=== PATIENT | male | born 1975 | race Caucasian/White ===

== ENCOUNTER 2020-01-10 02:43 | Emergency (ER) | payer SELFPAY ==
[2020-01-10 03:17] VITALS: BP 168/71
[2020-01-10] MEDS ORDERED: KETOROLAC 60 MG/2 ML INJ IM ONE (03:23)
[2020-01-10] MEDS ORDERED: KETOROLAC 60 MG/2 ML INJ ONE (03:27)
[2020-01-10 03:59] LABS: Alanine Aminotransferase 35 units/L (7-56); Albumin 4.8 g/dL (3.9-5); BUN/Creatinine Ratio 18; Blood Urea Nitrogen 21 mg/dL (9-20); Calcium 9.5 mg/dL (8.4-10.2); Hemolysis Index 5
[2020-01-10 04:08] LABS: Basophils # (Auto) 0.1 K/mm3 (0.0-0.1); Basophils % (Auto) 0.6 % (0.0-1.8); Eosinophils % (Auto) 0.5 % (0.0-4.3); Hemoglobin 13.7 gm/dl (11.8-15.2); Lymphocytes # (Auto) 1.9 K/mm3 (1.2-5.4); Mean Corpuscular HGB Conc 34 % (32-34); Mean Corpuscular Volume 91 fl (84-94); Monocytes # (Auto) 0.5 K/mm3 (0.0-0.8); Monocytes % (Auto) 5.6 % (0.0-7.3); Platelet Count 233 K/mm3 (140-440); Red Blood Count 4.38 M/mm3 (3.65-5.03); Red Cell Distribution Width 13.1 % (13.2-15.2)
--- NOTE | 2020-01-10 04:11 | Cat Scan Report ---
CT ABDOMEN AND PELVIS WITHOUT CONTRAST INDICATION: Right-sided flank pain TECHNICAL: Multiple axial CT images of the abdomen and pelvis were acquired without intravenous contr ast. Sagittal and coronal reformats were obtained. All CTs at this facility utilize dose reduction techniques including automated exposure control, iterative reconstruction and weight based dosing whe n appropriate to reduce patient radiation dose to as low as reasonable achievable. COMPARISON: None FINDINGS: Limited imaging of the bilateral lung bases demonstrates no acute abnormality. Abdomen: The liver, gallbladder, spleen, pancreas, bilateral adrenal glands and left kidney show no e vidence of acute abnormality. There is mild to moderate right-sided hydronephrosis, hydroureter and p erinephric stranding. There is no evidence of bowel obstruction. The abdominal aorta is normal in caliber. Pelvis: There is an obstructing 3 mm stone at the right ureterovesicular junction with mild to modera te right-sided hydroureter. Few scattered sigmoid diverticula are noted. No free pelvic fluid is iden tified. Bones and Soft Tissues: Evaluation of bony structures demonstrates no evidence of acute bony abnorma lity. Evaluation of soft tissue structures demonstrates no evidence of acute soft tissue abnormality. IMPRESSION: 1. Obstructing 3 mm stone within the distal right ureter causing mild to moderate right-sided hydrone phrosis and perinephric stranding. 2. Sigmoid diverticulosis. Signer Name: Janis Ledezma MD Signed: 01/10/2020 4:07 AM Workstation Name: [id number]
[2020-01-10 04:20] LABS: Bilirubin,Urine NEG (Negative); Blood,Urine LG (Negative); Color,Urine Yellow (Yellow); Mucus,Urine FEW /HPF; Protein,Urine <15 mg/dL mg/dL (Negative); Urobilinogen,Urine < 2.0 mg/dL (<2.0)
[2020-01-10] MEDS ORDERED: ONDANSETRON 4 MG/2 ML INJ IV ONE (07:59)
[2020-01-10] MEDS ORDERED: SODIUM CHLORIDE 0.9% 1000 ML 1,000 ML IV ONE (07:59)
[2020-01-10] MEDS ORDERED: HYDROmorphone 1 MG/1 ML INJ IV ONE (07:59)
--- NOTE | 2020-01-10 08:30 | Emergency Department Report ---
ED General Adult HPI - General Chief complaint: Abdominal Pain Stated complaint: BACK PAIN Time Seen by Provider: 01/10/20 07:39 Source: patient Mode of arrival: Ambulatory Limitations: No Limitations - History of Present Illness Initial comments: Patient is a 44-year-old male presents emergency room with complaints of right- sided flank pain that began just prior to arrival. Patient states that the pain radiates to the right side of the abdomen. He states he has associated nausea and vomiting. He states that he has also noticed hematuria. He denies ever having these symptoms in the past. He denies any fever, dysuria, hematemesis. He denies any past medical history. He states his only allergy is seafood. Severity scale (0 -10): 10 - Related Data Previous Rx's Medication Instructions Recorded Last Taken Type Ondansetron [Zofran Odt] 4 mg PO Q8HR PRN #7 tab.rapdis 01/10/20 Unknown Rx Tamsulosin [Flomax] 0.4 mg PO QDAY #7 cap 01/10/20 Unknown Rx traMADoL [Ultram 50 MG tab] 50 mg PO Q8HR PRN #10 tablet 01/10/20 Unknown Rx Allergies Allergy/AdvReac Type Severity Reaction Status Date / Time seafood Allergy Hives Uncoded 08/14/13 00:17 ED Review of Systems ROS: Stated complaint: BACK PAIN Other details as noted in HPI Comment: All other systems reviewed and negative ED Past Medical Hx - Past Medical History Previous Medical History?: No - Surgical History Past Surgical History?: No - Social History Smoking Status: Never Smoker Substance Use Type: Alcohol - Medications Home Medications: Home Medications Medication Instructions Recorded Confirmed Last Taken Type Ondansetron [Zofran Odt] 4 mg PO Q8HR PRN #7 tab.rapdis 01/10/20 Unknown Rx Tamsulosin [Flomax] 0.4 mg PO QDAY #7 cap 01/10/20 Unknown Rx traMADoL [Ultram 50 MG tab] 50 mg PO Q8HR PRN #10 tablet 01/10/20 Unknown Rx ED Physical Exam - General Limitations: No Limitations General appearance: alert, in no apparent distress - Head Head exam: Present: atraumatic, normocephalic - Eye Eye exam: Present: normal appearance - ENT ENT exam: Present: mucous membranes moist - Respiratory Respiratory exam: Present: normal lung sounds bilaterally. Absent: respiratory distress, wheezes, rales, rhonchi, stridor, chest wall tenderness, accessory muscle use, decreased breath sounds, prolonged expiratory - Cardiovascular Cardiovascular Exam: Present: regular rate, normal rhythm, normal heart sounds. Absent: systolic murmur, diastolic murmur, rubs, gallop - GI/Abdominal GI/Abdominal exam: Present: soft, normal bowel sounds. Absent: distended, tenderness, guarding, rebound, rigid - Back Exam Back exam: Present: CVA tenderness (R). Absent: CVA tenderness (L) - Neurological Exam Neurological exam: Present: alert, oriented X3 - Psychiatric Psychiatric exam: Present: normal affect, normal mood - Skin Skin exam: Present: warm, dry, intact ED Course Vital Signs 01/10/20 01/10/20 03:16 08:17 Temperature 97.4 F L Pulse Rate 66 Respiratory 18 18 Rate Blood Pressure 168/71 [Right] O2 Sat by Pulse 99 Oximetry ED Medical Decision Making - Lab Data Result diagrams: 01/10/20 03:20 01/10/20 03:20 Lab Results 01/10/20 01/10/20 01/10/20 Range/Units 03:20 03:20 Unknown WBC 9.5 (4.5-11.0) K/mm3 RBC 4.38 (3.65-5.03) M/mm3 Hgb 13.7 (11.8-15.2) gm/dl Hct 40.0 (35.5-45.6) % MCV 91 (84-94) fl MCH 31 (28-32) pg MCHC 34 (32-34) % RDW 13.1 L (13.2-15.2) % Plt Count 233 (140-440) K/mm3 Lymph % (Auto) 20.0 (13.4-35.0) % Elbert % (Auto) 5.6 (0.0-7.3) % Eos % (Auto) 0.5 (0.0-4.3) % Baso % (Auto) 0.6 (0.0-1.8) % Lymph # 1.9 (1.2-5.4) K/mm3 Elbert # 0.5 (0.0-0.8) K/mm3 Eos # 0.0 (0.0-0.4) K/mm3 Baso # 0.1 (0.0-0.1) K/mm3 Seg Neutrophils % 73.3 H (40.0-70.0) % Seg Neutrophils # 7.0 (1.8-7.7) K/mm3 Sodium 138 (137-145) mmol/L Potassium 3.5 L (3.6-5.0) mmol/L Chloride 98.4 (98-107) mmol/L Carbon Dioxide 21 L (22-30) mmol/L Anion Gap 22 mmol/L BUN 21 H (9-20) mg/dL Creatinine 1.2 (0.8-1.3) mg/dL Estimated GFR > 60 ml/min BUN/Creatinine Ratio 18 % Glucose 126 H (75-100) mg/dL Calcium 9.5 (8.4-10.2) mg/dL Total Bilirubin 0.50 (0.1-1.2) mg/dL AST 26 (5-40) units/L ALT 35 (7-56) units/L Alkaline Phosphatase 70 (35-129) units/L Total Protein 7.9 (6.3-8.2) g/dL Albumin 4.8 (3.9-5) g/dL Albumin/Globulin Ratio 1.5 % Urine Color Yellow (Yellow) Urine Turbidity Cloudy (Clear) Urine pH 5.0 (5.0-7.0) Ur Specific [place] 1.019 (1.003-1.030) Urine Protein <15 mg/dl (Negative) mg/dL Urine Glucose (UA) Neg (Negative) mg/dL Urine Ketones Tr (Negative) mg/dL Urine Blood Lg (Negative) Urine Nitrite Neg (Negative) Urine Bilirubin Neg (Negative) Urine Urobilinogen < 2.0 (<2.0) mg/dL Ur Leukocyte Esterase Neg (Negative) Urine WBC (Auto) 1.0 (0.0-6.0) /HPF Urine RBC (Auto) 84.0 (0.0-6.0) /HPF U Epithel Cells (Auto) < 1.0 (0-13.0) /HPF Urine Mucus Few /HPF - Radiology Data Radiology results: report reviewed CT ABDOMEN AND PELVIS WITHOUT CONTRAST INDICATION: Right-sided flank pain TECHNICAL: Multiple axial CT images of the abdomen and pelvis were acquired without intravenous contrast. Sagittal and coronal reformats were obtained. All CTs at this facility utilize dose reduction techniques including automated exposure control, iterative reconstruction and weight based dosing when appropriate to reduce patient radiation dose to as low as reasonable achievable. COMPARISON: None FINDINGS: Limited imaging of the bilateral lung bases demonstrates no acute abnormality. Abdomen: The liver, gallbladder, spleen, pancreas, bilateral adrenal glands and left kidney show no evidence of acute abnormality. There is mild to moderate right-sided hydronephrosis, hydroureter and perinephric stranding. There is no evidence of bowel obstruction. The abdominal aorta is normal in caliber. Pelvis: There is an obstructing 3 mm stone at the right ureterovesicular junction with mild to moderate right-sided hydroureter. Few scattered sigmoid diverticula are noted. No free pelvic fluid is identified. Bones and Soft Tissues: Evaluation of bony structures demonstrates no evidence of acute bony abnormality. Evaluation of soft tissue structures demonstrates no evidence of acute soft tissue abnormality. IMPRESSION: 1. Obstructing 3 mm stone within the distal right ureter causing mild to moderate right-sided hydronephrosis and perinephric stranding. 2. Sigmoid diverticulosis. Signer Name: Janis Ledezma MD Signed: 01/10/2020 4:07 AM Workstation Name: [id number] Transcribed By: EB Dictated By: Janis Ledezma MD Electronically Authenticated By: Janis Ledezma MD Signed Date/Time: 01/10/20406 DD/ 1 TD/TT: - Medical Decision Making Patient is a 44-year-old male presents emergency room with complaints of right- sided flank pain that began just prior to arrival. Patient states that the pain radiates to the right side of the abdomen. He states he has associated nausea and vomiting. He states that he has also noticed hematuria. He denies ever having these symptoms in the past. He denies any fever, dysuria, hematemesis. He denies any past medical history. He states his only allergy is seafood. VSS. on exam: Right-sided CVA tenderness to percussion, no abdominal tenderness palpation, no guarding, no rebound, no rigidity, no peritoneal signs, normal bowel sounds. Labs are stable. UA shows red blood cells. CT abd pelvis without contrast shows: 1. Obstructing 3 mm stone within the distal right ureter causing mild to moderate right-sided hydronephrosis and perinephric stranding. 2. Sigmoid diverticulosis. pt has no leukocytosis, no bacteria present in the urine. his kidney function is stable. Patient was given Toradol prior to my examination, he continues to have some discomfort. Patient given 1 L normal saline, Zofran, Dilaudid and symptoms completely improved and patient was feeling much better ready to go home. He was able to tolerate p.o. intake without difficulty. Discussed all results with patient and discussed the need for urology follow-up. Patient given prescription for tramadol, tamulosin, Zofran. Advised patient Please take medication as prescribed. Please increase your water intake over the next several days. Do not drive or operate heavy machinery while taking pain medication due to potential for drowsiness. Follow- up with a urologist. Return to emergency room for any new or worsening symptoms including but not limited to worsening pain, fever, unable to urinate, unable to tolerate by mouth intake, etc. - Differential Diagnosis nephrolithiasis, hydronephrosis, pyelonephritis, MOE, UTI, muscle strain Critical care attestation.: If time is entered above; I have spent that time in minutes in the direct care of this critically ill patient, excluding procedure time. ED Disposition Clinical Impression: Nephrolithiasis, Diverticulosis Hydronephrosis Qualifiers: Hydronephrosis type: with ureteral calculous obstruction Qualified Code(s): N13.2 - Hydronephrosis with renal and ureteral calculous obstruction Disposition: DC-01 TO HOME OR SELFCARE Is pt being admited?: No Does the pt Need Aspirin: No Condition: Stable Instructions: Kidney Stones (ED), Hydronephrosis (ED) Additional Instructions: Please take medication as prescribed. Please increase your water intake over the next several days. Do not drive or operate heavy machinery while taking pain medication due to potential for drowsiness. Follow-up with a urologist. Return to emergency room for any new or worsening symptoms including but not limited to worsening pain, fever, unable to urinate, unable to tolerate by mouth intake, etc. [place] los medicamentos segn lo prescrito. Aumente la ingesta de agua steven los prximos soliz. No conduzca ni maneje maquinaria pesada mientras est tomando analgsicos debido al potencial de somnolencia. Seguimiento con un urlogo. Regrese a la jana de emergencias por cualquier sntoma nuevo o que empeore, incluidos, entre otros, empeoramiento del dolor, fiebre, incapacidad para orinar, incapacidad para tolerar la ingestin oral, etc. Prescriptions: Tamsulosin [Flomax] 0.4 mg PO QDAY #7 cap traMADoL [Ultram 50 MG tab] 50 mg PO Q8HR PRN #10 tablet PRN Reason: Pain , Severe (7-10) Ondansetron [Zofran Odt] 4 mg PO Q8HR PRN #7 tab.rapdis PRN Reason: Nausea And Vomiting [facility] DA[facility] [Primary Care Provider] - 2-3 Days KARINA CODY MD [Staff Physician] - 2-3 Days Time of Disposition: 09:02 Print Language: BULGARIAN
== END 2020-01-10 09:18 | disposition home or self-care (01) ==
LOC: ED 02:43
DX: N13.2 Hydronephrosis with renal and ureteral calculous obstruction (principal); K57.90 Diverticulosis of intestine, part unspecified, without perforation or abscess without bleeding; Z91.018 Allergy to other foods
CPT/HCPCS: 36415; 74176; 80053; 81001; 85025; 96361; 96372; 96374; 96375; 99284; J1170; J1885; J2405; J7030